=== PATIENT | male | born 1960 | race Caucasian/White ===

== ENCOUNTER → 2020-02-09 | Outpatient (CLI) | payer BC ==
[~2020-02-09] MED LIST: CATHETER FLUSH 10 ML SYR IV PRN; HOLD METFORMIN - RECEIVED CONTRAST 20 ML VIAL IV SCH; IOHEXOL 350 MG/ML 100 ML (OMNIPAQUE 350) VIAL IV ONE; NS 100 ML (IVPB) BAG IV ONE
[2020-02-09 10:49] LABS: SODIUM 136 MMOL/L (135-145)
[2020-02-09 10:50] LABS: ALANINE AMINOTRANSFERASE 8 U/L (0-55); ALBUMIN 3.2 GM/DL (3.2-4.5); ALKALINE PHOSPHATASE 71 U/L (40-136); BILIRUBIN,TOTAL 0.9 MG/DL (0.1-1.0); BUN/CREATININE RATIO 15; CALCIUM 9.2 MG/DL (8.5-10.1); CARBON DIOXIDE 21 MMOL/L (21-32); CHLORIDE 99 MMOL/L (98-107); CREATININE SERUM 0.74 MG/DL (0.60-1.30); GFR ESTIMATED > 60; GLUCOSE 131 MG/DL (70-105); POTASSIUM 4.4 MMOL/L (3.6-5.0); TOTAL PROTEIN 7.9 GM/DL (6.4-8.2)
--- NOTE | 2020-02-09 14:16 | Diagnostic Imaging Report ---
PROCEDURE: CT abdomen and pelvis with contrast. TECHNIQUE: Multiple contiguous axial images were obtained through the abdomen and pelvis after administration of intravenous contrast. Auto Exposure Controls were utilized during the CT exam to meet ALARA standards for radiation dose reduction. INDICATION: Elevated liver enzymes. COMPARISON: None available. FINDINGS: Median sternotomy. Calcified granuloma are present within the bilateral lung bases; otherwise, the lungs appear clear. The liver demonstrates diffusely decreased echogenicity throughout. A few hepatic calcified granuloma are present. The liver is otherwise unremarkable. A few calcified splenic granuloma are present. No focal splenic mass. The pancreas appears diffusely enlarged. Peripancreatic fat stranding is present associated with significant fat stranding with associated focal gas and fluid collections along the left prerenal fascia and left paracolic gutter. The largest pocket of fluid present is just lateral to the left psoas musculature measuring 2.8 x 2.7 x 4.9 cm. A portion of the descending colon which demonstrates colonic diverticulosis is identified extending immediately adjacent to this region of fat stranding and focal fluid collection. An additional gas and fluid collection is noted extending along the inferior aspect of the tail of the pancreas. The adrenal glands are unremarkable. The kidneys are unremarkable. Advanced scattered vascular calcifications are present without aneurysmal dilatation of the abdominal aorta. 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 Additional mild to moderate stenosis within the proximal superior mesenteric artery. The urinary bladder is unremarkable. The appendix is unremarkable. No bowel obstruction or pneumatosis. No significant adenopathy or free air. No acute osseous abnormality. IMPRESSION: Significant inflammatory changes with associated focal gas and fluid collections extending within the left retroperitoneum and left paracolic gutter as described above. Findings are concerning for abscess formation. Given location, it is favored this is secondary to pancreatitis. Recommend correlation with laboratory values. However, diverticulum associated with the descending colon is noted within this region as well; therefore, diverticulitis cannot completely be excluded. 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 Fatty infiltration of the liver. Evidence of chronic granulomatous disease. The report was FAXED to [employer]/chief technical officer of [employer] [employer] APRN, by OLIVIA@ 2:12 PM. Dictated by: Dictated on workstation # [id number]
== END ==
LOC: RAD FS 09:55
PROVIDERS: ATTEND Nurse Practitioner Family
DX: K85.91 Acute pancreatitis with uninfected necrosis, unspecified (principal); R74.8 Abnormal levels of other serum enzymes; R60.0 Localized edema; K57.30 Diverticulosis of large intestine without perforation or abscess without bleeding; K76.0 Fatty (change of) liver, not elsewhere classified
CPT/HCPCS: 36415; 74177; 80053